=== PATIENT | female | born 1955 | race Caucasian/White ===

== ENCOUNTER 2018-02-24 10:06 | Outpatient (CLI) | payer BC ==
--- NOTE | 2018-02-24 13:03 | MRI ---
LEFT KNEE MRI WITHOUT IV CONTRAST: History: Left knee pain since July 2017. FINDINGS: Multiplanar multisequence MRI examination of the left knee was performed. There is evidence for a sub surface free edge tear with some free edge irregularity involving the posterior horn of the medial me niscus as well as a small probable flap tear at the level of the body of the medial meniscus. Small o steochondral focus, remote, involving the medial trochlear groove with some irregular cartilage thinn ing involving the inferior lateral patellar facet with associated subchondral cystic focus. There is minimal cartilage loss involving the medial compartment. The lateral meniscus appears intact. Anterio r and posterior cruciate ligaments and collateral ligament complexes and quadriceps and patellar tend ons are intact. No abnormal joint effusion. IMPRESSION: Irregular free edge tear of the posterior horn of the medial meniscus with a probable small flap tear involving the body of the medial meniscus. Some cartilage loss involving the lateral patellar facet but a small subchondral cystic focus as well as some cartilage loss involving the medial compartment. Remote small osteochondral focus involving the medial trochlear groove. No evidence for other signif icant acute internal derangement. POS: [place]
== END 2018-02-24 10:07 | disposition home or self-care (01) ==
LOC: SCSMRI 10:06
PROVIDERS: ATTEND Orthopaedic Surgery
DX: M25.562 Pain in left knee (principal); S83.242A Other tear of medial meniscus, current injury, left knee, initial encounter

== ENCOUNTER 2018-03-10 09:32 | Outpatient (CLI) | payer BC ==
[2018-03-10 10:45] LABS: #Basophils 0.1 thou/uL (0.0-0.2); #Eosinphils 0.3 thou/uL (0.0-0.7); #Lymphocytes 2.4 thou/uL (1.20-3.40); #Monocytes 0.5 thou/uL (0.11-0.59); #Neutrophils 3.3 thou/uL (1.40-6.50); %Basophils 1.4 % (0.0-1.0); %Eosinophils 4.1 % (0.0-10.0); %Lymphocytes 36.2 % (21.0-51.0); %Monocytes 8.1 % (0.0-10.0); %Neutrophils 50.2 % (42.0-75.0); Hemoglobin 13.2 g/dL (12.0-16.0); Mean Corpuscular HGB CONC 34.1 g/dL (32.0-36.0); Mean Corpuscular Hemoglobin 33.5 pg (27.0-31.0); Mean Platelet Volume 7.4 fL (7.4-10.4); Platelet Count 283 thou/uL (130-400); RBC Distribution Width 12.8 % (11.5-14.5); Red Blood Cell (RBC) Count 3.95 mill/uL (4.20-5.40); White Blood Cell (WBC) Count 6.5 thou/uL (4.8-10.8)
[2018-03-10 11:15] LABS: Anion Gap 10 mmol/L (10-20); BUN (Urea Nitrogen) 17 mg/dL (9.8-20.1); Calc. Creatinine Clearance 0 mL/min (70-130); Calcium 9.3 mg/dL (7.8-10.44); Carbon Dioxide 31 mmol/L (22-29); Chloride 103 mmol/L (98-107); Estimated GFR-MDRD 72; Glucose 82 mg/dL (70-105); Potassium 3.7 mmol/L (3.5-5.1); Sodium 140 mmol/L (136-145)
--- NOTE | 2018-03-12 20:12 | EKG ---
Test Reason : Blood Pressure : / mmHG Vent. Rate : 063 BPM Atrial Rate : 063 BPM P-R Int : 130 ms QRS Dur : 078 ms QT Int : 412 ms P-R-T Axes : 053 032 044 degrees QTc Int : 421 ms Normal sinus rhythm Normal ECG No previous ECGs available Confirmed by NORA FOUNTAIN (2) on 03/12/2018 8:12:16 PM Referred By: NOAH Confirmed By:NORA FOUNTAIN
== END 2018-03-10 09:33 | disposition home or self-care (01) ==
LOC: LABBT 09:32
PROVIDERS: ATTEND Orthopaedic Surgery
DX: Z01.818 Encounter for other preprocedural examination (principal); S83.242A Other tear of medial meniscus, current injury, left knee, initial encounter
CPT/HCPCS: 80048; 85025; 93005; 93010

== ENCOUNTER 2018-03-19 06:16 | Day surgery (SDC) | payer BC ==
[2018-03-10 09:48] VITALS: BMI 32.8
--- NOTE | 2018-03-18 08:52 | HP ---
HISTORY OF PRESENT ILLNESS: The patient is a 62-year-old female with a several year history of left knee problems without specific injury. Symptoms have become much worse over the past 4-5 months. Silverio corrales has pain with ambulation and also with stairs and also interferes with sleep. She has a sensation of instability. She has had persistent symptoms despite rest, restriction of activities, anti-inflam matory medication, and a previous cortisone injection. PAST MEDICAL HISTORY: The patient is otherwise in good health. She has history of hypertension, ref lux, thyroid replacement. CURRENT MEDICATIONS: Lipitor, levothyroxine, temazepam, Premarin, benazepril, hydrochlorothiazide, m ultivitamins and calcium. ALLERGIES: She has seasonal allergies, but no medical allergies. FAMILY HISTORY/SOCIAL HISTORY/REVIEW OF SYSTEMS: Otherwise unremarkable. PHYSICAL EXAMINATION: GENERAL: Reveals healthy female. HEENT: Unremarkable. NECK: Supple. CHEST: Clear. HEART: Regular rate and rhythm. ABDOMEN: Soft, nontender. PELVIC/RECTAL/BREAST: Exams are deferred. EXTREMITIES: Pertinent findings related to the left knee. There is no effusion. There is normal al ignment. There is tenderness over the medial joint line and lateral joint line. Range of motion is 0-135 degrees. There is slight left antalgic gait. There is no instability. Neurovascular exam is intact with palpable distal pulses. X-rays of the left knee reveal minimal degenerative changes. LABORATORY AND X-RAY FINDINGS: X-rays of the left knee reveal mild degenerative changes and a tear o f the medial meniscus. IMPRESSION: Internal derangement of left knee with medial meniscal tear, possible component of degen erative joint disease. PLAN: Arthroscopy left knee with partial medial meniscectomy and/or debridement and shaving. The na ture of the surgery, length of recovery, and potential complications such as infection, loss of motio n, incomplete relief, thromboembolic phenomenon, neurovascular injury, post-traumatic degenerative ar thritis, recurrent tear and need for additional treatment or repeat surgery have been discussed in de tail.
[2018-03-19] MEDS ORDERED: CEFAZOLIN/Water 2 GM/20 ML SYRINGE ONE (06:46)
[2018-03-19] MEDS ORDERED: Fentanyl 100 MCG/2 ML VIAL ONE (06:59)
[2018-03-19] MEDS ORDERED: Bupivacaine HCl 0.5%/Epinephrine 1:200,000/PF 30 ml Vial ONE (06:59)
[2018-03-19] MEDS ORDERED: Scopolamine 1.5 mg/72 hour Patch ONE (07:19)
[2018-03-19] MEDS ORDERED: Midazolam HCl 2 mg/2 ml Vial ONE (07:24)
--- NOTE | 2018-03-19 09:29 | OP ---
DATE OF PROCEDURE: 03/19/2018 SURGEON: Nayan Jaimes M.D. ANESTHESIA: General. PREOPERATIVE DIAGNOSIS: Medial meniscal tear, left knee. POSTOPERATIVE DIAGNOSES: Medial meniscal tear, left knee; plus early degenerative arthritis. PROCEDURE: Arthroscopy of left knee with partial medial meniscectomy. OPERATIVE FINDINGS: Examination under anesthesia revealed the knee to be stable. Arthroscopy reveal ed minimal degenerative change of the patellofemoral joint. There were grade 2 and early grade 3 michelle nges of the weightbearing surface of the medial femoral condyle and a degenerative complex tear of th e posterior horn of the medial meniscus with a large flap component. ACL was intact. Lateral menisc us and lateral compartments were normal. NARRATIVE REPORT: After satisfactory anesthesia was induced in supine position, the patient was plac ed in a leg nj and then prepped and draped in routine manner. Left leg was elevated, exsanguinat ed with an Esmarch bandage, and tourniquet inflated to 300 mmHg. Shruthi arthroscope was introduced in anterolateral portal, probe through an anteromedial portal, and inflow and outflow accomplished th rough the scope using the [employer] arthroscopy pump. Arthroscopy was carried out and the above findin gs were noted. All findings were documented with the video printed hard copies were made. The poste rior horn of the medial meniscus was debrided with use of basket forceps and motorized shaver, interm ittently interchanging the camera and instruments through the anteromedial and anterolateral portal f or best visualization. The tear was debrided and saucerized and the remaining rim probed and balance d and found to be stable. There was still an intact rim of 5-6 mm. The medial femoral condyle was d ebrided with a motorized shaver of all loose fronds of articular surface. There are no areas of expo sed bone. The knee was then copiously irrigated through the scope and all instruments were then with drawn. A 20 mL of 0.5% Marcaine with epinephrine was instilled into the knee joint and an additional 10 mL injected about the portal sites. The portal sites were closed with 3-0 nylon. A sterile bulk y compressive dressing was applied and the tourniquet deflated after 19 minutes. The foot promptly p inked up. The patient was awakened, taken to recovery room in stable condition. There were no appar ent intraoperative complications. The estimated blood loss was negligible. The patient will be discharged home in satisfactory condition. She was instructed in ice, elevation, use of crutches, and given a home exercise program by the Physical Therapy Department. She was give n written wound care instructions, a prescription for [place] 7.5 for pain, 40 tablets. She will reche ck in my office in 10-14 days or sooner if there are any problems prior to that time.
== END 2018-03-19 10:50 | disposition home or self-care (01) ==
LOC: SDC 06:16
PROVIDERS: ATTEND Orthopaedic Surgery
PROC: 0SBD4ZZ Excision of Left Knee Joint, Percutaneous Endoscopic Approach (ICD-10-PCS; principal; 2018-03-19)
DX: S83.232A Complex tear of medial meniscus, current injury, left knee, initial encounter (principal); I10 Essential (primary) hypertension; K21.9 Gastro-esophageal reflux disease without esophagitis; Z79.890 Hormone replacement therapy; Z98.890 Other specified postprocedural states
CPT/HCPCS: G8978-GP-CJ; G8979-GP-CJ; G8980-GP-CJ; J0670; J2250; J3010

== ENCOUNTER 2018-09-04 10:37 | Outpatient (CLI) | payer BC ==
--- NOTE | 2018-09-04 14:31 | MRI ---
MRI LUMBAR SPINE WITHOUT CONTRAST: Date: 09/04/18 HISTORY: M54.16, lumbar radiculopathy. COMPARISON: None. FINDINGS: The aortic contour is nonaneurysmal. No retroperitoneal adenopathy. No hydronephrosis. Left-sided par apelvic renal cysts. No marrow infiltrative process. There are Modic Type II end plate changes at L5-S1. Levels are as follows: L1-2: There is mild remodeling of the posterior end plates of L1 and L2 with remodeling of the annul us at this level without a focal disc herniation. No neural foraminal or spinal canal narrowing. L2-3: Mild posterior degenerative disc space height loss. Right subforaminal posterior disc osteophy te complex. There is moderate right-sided neural foraminal narrowing. Spinal canal is not significant ly narrowed. L3-4: Small posterior disc osteophyte complex, broad based. This extends into both subforaminal zone s and causes mild to moderate bilateral neural foraminal narrowing. The spinal canal measures approxi mately 8.0 mm. There is narrowing of the L3-4 interspinous space. L4-5: There is anterolisthesis of approximately 2.0 mm due to severe degenerative facet changes. The re is narrowing of the L4-5 interspinous space. The anterolisthesis and hypertrophic facet changes ca uses moderate bilateral neural foraminal narrowing with abutment of the exiting and traversing nerve roots. Subsequent narrowing of the spinal canal to 6.0 mm due to anterolisthesis. L5-S1: Moderate degenerative disc space height loss. Circumferential disc osteophyte complex. Hypert rophic facet changes. Moderate bilateral neural foraminal narrowing with abutment of the exiting and traversing nerve roots bilaterally. IMPRESSION: 1. Moderate spondylosis, worse at L4-5 and L5-S1. 2. Anterolisthesis, Grade I, 2-3 mm L4 over L5 due to advanced facet degenerative changes. POS: [facility]
== END 2018-09-04 10:38 | disposition home or self-care (01) ==
LOC: TBSIIMAG 10:37
PROVIDERS: ATTEND Neurological Surgery
DX: M47.26 Other spondylosis with radiculopathy, lumbar region (principal); M47.27 Other spondylosis with radiculopathy, lumbosacral region; M43.16 Spondylolisthesis, lumbar region
CPT/HCPCS: 72148

== ENCOUNTER 2018-11-10 17:39 | Emergency (ER) | payer BC ==
[2018-11-10 18:47] LABS: Bilirubin Negative (Negative); Blood, Urine Negative (Negative); Clarity Clear (Clear); Glucose, Urine (Dipstick) Negative (Negative); Leukocyte Negative (Negative); Nitrite Negative (Negative); Protein, Urine (Dipstick) Negative (Neg-Trace); Specific Gravity, Urine 1.015 (1.005-1.030); Urobilinogen 0.2 mg/dL (0.2-1.0)
[2018-11-10 18:55] LABS: Eosinophils 6 % (0-10); Hemoglobin 14.2 g/dL (12.0-16.0); Lymphocytes 25 % (21-51); MDiff Complete? YES; Mean Corpuscular HGB CONC 35.2 g/dL (32.0-36.0); Mean Corpuscular Volume 90.9 fL (78.0-98.0); Mean Platelet Volume 10.2 fL (7.4-10.4); Monocytes 4 % (0-10); Neutrophil 60 % (42-75); Platelet Count 346 thou/uL (130-400); Platelet Morphology Comment Appears Adequate; RBC Distribution Width 11.9 % (11.5-14.5); Reactive Lymphocytes 5 % (0-10); Red Blood Cell (RBC) Count 4.42 mill/uL (4.20-5.40); White Blood Cell (WBC) Count 7.6 thou/uL (4.8-10.8)
--- NOTE | 2018-11-10 19:10 | RAD ---
RADIOGRAPH CHEST 2 VIEWS: HISTORY: A 63-year-old female with chest pain. FINDINGS: There is no air space density, pulmonary edema, pleural effusion, pneumothorax, or cardiomegaly. IMPRESSION: No acute cardiopulmonary findings. jn [] POS: [facility]
[2018-11-10 19:25] LABS: ALT (SGPT) 25 U/L (8-55); AST (SGOT) 17 U/L (5-34); Albumin 4.3 g/dL (3.4-4.8); Alkaline Phosphatase 66 U/L (40-150); Anion Gap 14 mmol/L (10-20); BUN (Urea Nitrogen) 14 mg/dL (9.8-20.1); Bilirubin, Total 0.3 mg/dL (0.2-1.2); Calc. Creatinine Clearance 0 mL/min (70-130); Calcium 9.8 mg/dL (7.8-10.44); Carbon Dioxide 27 mmol/L (23-31); Chloride 105 mmol/L (98-107); Estimated GFR-MDRD 63; Globulin 2.9 g/dL (2.4-3.5); Glucose 92 mg/dL (80-115); Potassium 3.6 mmol/L (3.5-5.1); Protein, Total 7.2 g/dL (6.0-8.3); Sodium 142 mmol/L (136-145)
[2018-11-10] MEDS ORDERED: Morphine 4 MG/ML VIAL ONE (20:46)
[2018-11-10 23:04] LABS: Troponin I Less than 0.010 ng/mL (< 0.028)
--- NOTE | 2018-11-10 23:38 | CT ---
CTA THORAX WITH CONTRAST: DATE: 11/10/2018 TIME: 11:11 p.m. (Computed Tomographic Angiography, chest(noncoronary) with contrast material, and image post processi ng) (PE protocol) HISTORY: A 63-year-old female with chest pain. TECHNIQUE: IV injection of iodinated contrast. Scan acquisition timing attempted to coincide with iodinated contrast bolus reaching maximal density in pulmonary arteries. 3D MIP reconstructions. FINDINGS: There is an approximately 1 x 1.5 cm pretracheal mediastinal lymph node. No other significantly enla rged mediastinal or hilar lymph nodes. No thoracic aortic aneurysm or dissection. No pulmonary thro mboembolism. Trachea and major bronchi are patent and clear. Lungs are clear. No pleural effusion or pneumothorax. No destructive osseous lesion identified. IMPRESSION: No acute findings. guido[] POS: [place]
[2018-11-11] MEDS ORDERED: HYDROcodone/Acetaminophen 10/325 mg Tablet ONE (00:19)
== END 2018-11-11 00:29 | disposition home or self-care (01) ==
LOC: SCSER 17:39
DX: R07.89 Other chest pain (principal); G43.909 Migraine, unspecified, not intractable, without status migrainosus; J30.2 Other seasonal allergic rhinitis; E78.5 Hyperlipidemia, unspecified; F41.9 Anxiety disorder, unspecified; F32.9 Major depressive disorder, single episode, unspecified; Z79.899 Other long term (current) drug therapy
CPT/HCPCS: 36415; 71046; 71275; 80053; 81003; 84484; 85025; 85379; 93005; 96361; 96374; J2270

== ENCOUNTER 2018-11-27 15:28 | Outpatient (CLI) | payer BC ==
--- NOTE | 2018-11-27 16:20 | RAD ---
RADIOGRAPH LUMBAR SPINE 2 VIEWS: DATE: 11-27-18 HISTORY: 63-year-old female with lumbar radiculopathy. M54.16 COMPARISON: None. FINDINGS: There are five lumbar type vertebrae. There is a mild right lateral curvature. Vertebral body heights are maintained. Unilateral left pedicle screws at L4, L5, and S1 with vertical interlocking sandy. Gra de I anterolisthesis of L4 on L5. Metallic markers for interbody graft material and L4-5 and L5-S1 di sc spaces. Mild disc space narrowing at L4-5. Moderate disc space narrowing at L3-4 and L5-S1. Bony h ypertrophy along the right posterior elements at L4-5 and L5-S1 could represent onlay bone graft fusi on material and/or degenerative facet changes. IMPRESSION: 1. Status post unilateral left pedicle screw posterior interbody fusion at L4-L5-S1. 2. Mild right lateral curvature. 3. Degenerative disc changes at L3-4 and L5-S1. ROSA POS: [facility]
== END 2018-11-27 15:29 | disposition home or self-care (01) ==
LOC: TBSIIMAG 15:28
PROVIDERS: ATTEND Physician Assistant
DX: M51.16 Intervertebral disc disorders with radiculopathy, lumbar region (principal); M51.37 Other intervertebral disc degeneration, lumbosacral region; M43.8X6 Other specified deforming dorsopathies, lumbar region; Z98.1 Arthrodesis status
CPT/HCPCS: 72100

== ENCOUNTER 2019-01-22 14:31 | Outpatient (CLI) | payer BC ==
--- NOTE | 2019-01-22 14:59 | RAD ---
LUMBAR SPINE TWO VIEWS: History: Disc degenerative lumbar region. Comparison: 11-27-18 FINDINGS: AP and lateral views of the lumbar spine demonstrate left sided pedicle screw placement changes with intradiscal prosthesis at L4-5 and L5-S1 without malalignment or other acute process. IMPRESSION: Stable post-operative changes at L4-5 and L5-S1. POS: [facility]
== END 2019-01-22 14:32 | disposition home or self-care (01) ==
LOC: TBSIIMAG 14:31
PROVIDERS: ATTEND Neurological Surgery
DX: M51.36 Other intervertebral disc degeneration, lumbar region (principal); Z98.890 Other specified postprocedural states
CPT/HCPCS: 72100

== ENCOUNTER 2019-10-16 08:28 | Outpatient (CLI) | payer BC ==
--- NOTE | 2019-10-16 09:22 | MRI ---
EXAM: MRI left knee PROVIDED CLINICAL HISTORY: Pain COMPARISON: 02/24/2018 FINDINGS: The anterior cruciate ligament, posterior cruciate ligament, medial collateral ligament and lateral c ollateral ligamentous complex demonstrate an intact MR appearance, as does the extensor mechanism. There is grade 3 signal involving the body of the medial meniscus, contacting the tibial articular agudelo rface (image 15 series 6). The lateral meniscus demonstrates no evidence for tear. No focal articular cartilage defect is apparent. The amount of fluid within the knee joint appears physiologic. Regional marrow and muscular signal appear normal. IMPRESSION: Grade 3 signal involving the body of the medial meniscus as described.
== END 2019-10-16 08:29 | disposition home or self-care (01) ==
LOC: SCSMRI 08:28
PROVIDERS: ATTEND Orthopaedic Surgery
DX: M25.562 Pain in left knee (principal); Z98.890 Other specified postprocedural states

== ENCOUNTER 2019-11-24 07:29 | Day surgery (SDC) | payer BC ==
[2019-11-23 14:46] VITALS: BMI 32.4
--- NOTE | 2019-11-24 09:15 | RAD ---
LUMBAR MYELOGRAM: INDICATION: Lumbar back pain and lumbar radiculopathy TECHNIQUE: Informed consent was obtained. Preprocedure sports teacher images were performed for guidance purposes. Site overlying the left L2-3interlaminar space was marked. The site was prepped and draped in the usu al sterile fashion. Buffered 1% lidocaine was administered to the overlying subcutaneous tissues. Under fluoroscopic guidance, a 22-gauge spinal needle was guided down into the thecal sac. There was spontaneous return of normal appearing CSF fluid. Following this 12 mL of Isovue M was injected within the thecal sac. There was fluoroscopic visualiza tion of internal nerve roots confirming intrathecal location of needle placement. The inner stylette was replaced within the needle and the needle removed. Pressure was held at the bi opsy site until hemostasis was obtained. The biopsy site was then cleansed and bandage. The patient tolerated the injection without difficulty. Total fluoroscopic time was 0.4 minutes. Total exposure was 243microGy/m2. FINDINGS: There is a left L4-L5 posterior lateral interbody fusion construct. There is mild multilevel disc deg enerative and facet osteoarthritic change. IMPRESSION: Successful lumbar myelogram
--- NOTE | 2019-11-24 09:55 | CT ---
CT LUMBAR MYELOGRAM: INDICATIONS: Back pain and radiculopathy. COMPARISON: MR lumbar spine without contrast dated September 04, 2018 TECHNIQUE: Multiple CT images were obtained of the lumbar spine following the intrathecal administration of an I sovue-200 Msolution. Please see the lumbar myelogram for details concerning the injection technique. Axial, coronal, and sagittal reformatted images were constructed from the raw data. FINDINGS: Visualized retroperitoneal and paravertebral soft tissues: Within normal limits Spinal alignment: Grade 1 anterolisthesis of L4 and L5 is stable to the comparison MR of the lumbar s pine dated September 04, 2018 Spinal instrumentation or postsurgical change: There is a posterior lateral interbody fusion construc t on the left consisting of left-sided pedicular screws from L4 through S1 with interconnecting rods and intervertebral disc cages at L4-5 and L5-S1. There is no appreciable incorporation of the in terbody bone graft. There are left-sided laminotomies at L4 and L5. At L5-S1, there is a mild broad-based disc osteophyte complex without appreciable central canal narro wing. There is stable mild right neural foraminal narrowing due to the disc osteophyte complex and facet hypertrophy. At L4-5, there is a broad-based disc bulge without appreciable central canal or neural foraminal narr owing. There is improvement in the left lateral recess narrowing seen on the left at L4-5. At L3-4, there is an asymmetric to the left broad-based disc bulge inducing mild central canal narrow ing which is slightly more pronounced than on the prior exam. There is mild left neural foraminal narrowing which is stable. At L2-3, there is a broad-based disc bulge with a superimposed far lateral right disc protrusion that does contact the exited right L2 nerve on image 42 of the axial series. This appears stable to the prior exam. No left-sided neural foraminal narrowing is demonstrated. At L1-L2, there is no appreciable central canal or neuroforaminal narrowing. At T12-L1, there is no appreciable central canal or neuroforaminal narrowing. IMPRESSION: 1. Postoperative lumbar spine with mild to moderate lumbar spondylosis. 2. Improvement in the left lateral recess narrowing seen at L4-5. 3. Stable mild right neural foraminal narrowing at L5-S1. 4. Mild central canal narrowing at L3-4 slightly more pronounced than the prior exam. There is stable left mild L3-4 neural foraminal narrowing. 5. Broad-based disc bulge with a superimposed far lateral right disc protrusion is stable. There is m ild contact of the exited right L2 nerve root by the far lateral right disc protrusion.
[2019-11-24] MEDS ORDERED: Iopamidol-M 200 41% 20 ML VIAL ONE (14:31)
== END 2019-11-24 10:00 | disposition home or self-care (01) ==
LOC: RAD 07:29
PROVIDERS: ATTEND Neurological Surgery
PROC: B02B1ZZ Computerized Tomography (CT Scan) of Spinal Cord using Low Osmolar Contrast (ICD-10-PCS; principal; 2019-11-24)
DX: M47.26 Other spondylosis with radiculopathy, lumbar region (principal); M43.16 Spondylolisthesis, lumbar region; I10 Essential (primary) hypertension; E03.9 Hypothyroidism, unspecified; E78.5 Hyperlipidemia, unspecified; F41.9 Anxiety disorder, unspecified; F32.9 Major depressive disorder, single episode, unspecified
CPT/HCPCS: 62304; 72132; Q9966

== ENCOUNTER 2020-02-26 08:15 | Outpatient (CLI) | payer BC, OTHER ==
[2020-02-26 13:40] LABS: #Basophils 0.1 thou/uL (0.0-0.2); #Eosinphils 0.4 thou/uL (0.0-0.7); #Lymphocytes 2.6 thou/uL (1.20-3.40); #Monocytes 0.5 thou/uL (0.11-0.59); #Neutrophils 3.4 thou/uL (1.40-6.50); %Basophils 1.3 % (0.0-1.0); %Eosinophils 5.2 % (0.0-10.0); %Lymphocytes 37.5 % (21.0-51.0); %Monocytes 7.5 % (0.0-10.0); %Neutrophils 48.6 % (42.0-75.0); Hemoglobin 13.5 g/dL (12.0-16.0); Mean Corpuscular HGB CONC 33.9 g/dL (32.0-36.0); Mean Corpuscular Hemoglobin 32.5 pg (27.0-31.0); Mean Corpuscular Volume 95.8 fL (78.0-98.0); Mean Platelet Volume 8.1 fL (7.4-10.4); Platelet Count 305 thou/uL (130-400); RBC Distribution Width 12.1 % (11.5-14.5); Red Blood Cell (RBC) Count 4.15 mill/uL (4.20-5.40)
[2020-02-26 14:01] LABS: Anion Gap 11 mmol/L (10-20); BUN (Urea Nitrogen) 15 mg/dL (9.8-20.1); Calc. Creatinine Clearance 0 mL/min (70-130); Calcium 9.9 mg/dL (7.8-10.44); Carbon Dioxide 30 mmol/L (23-31); Chloride 102 mmol/L (98-107); Estimated GFR-MDRD 60; Glucose 85 mg/dL (80-115); Potassium 3.8 mmol/L (3.5-5.1); Sodium 139 mmol/L (136-145)
[2020-02-26 18:25] LABS: SARS-CoV-2 MS2 Positive; SARS-CoV-2 N Gene Negative; SARS-CoV-2 S Gene Negative; SARS-CoV-2 orf1ab Negative
== END 2020-02-26 08:16 | disposition home or self-care (01) ==
LOC: LABBT 08:15
PROVIDERS: ATTEND Orthopaedic Surgery
DX: Z01.812 Encounter for preprocedural laboratory examination (principal); Z11.59 Encounter for screening for other viral diseases; Z98.890 Other specified postprocedural states
CPT/HCPCS: 80048; 85025; 87635; U0002

== ENCOUNTER 2020-03-02 07:13 | Day surgery (SDC) | payer BC ==
[2020-02-26 12:33] VITALS: BMI 34.0
--- NOTE | 2020-03-01 12:38 | HP ---
HISTORY OF PRESENT ILLNESS: The patient is a 64-year-old female, who underwent left knee arthroscopy and partial medial meniscectomy approximately 2 years ago. She initially improved, but has developed recurrent pain without specific injury. She has weightbearing pain, which was worse with activities. Did not respond to anti-inflammatory medications, and previous cortisone injection. She subsequently underwent back surgery by Dr. Mendoza for back pain radiating to her left leg, which helped her back pain, but did not alleviate her knee pain. PAST HISTORY: Please see the old chart. The patient is otherwise in good health. She has a history of reflux and hypertension. CURRENT MEDICATIONS: Include: 1. Zofran. 2. Amlodipine. 3. Thyroid. 4. Meloxicam. 5. Temazepam. 6. Premarin. 7. Benazepril-hydrochlorothiazide. 8. Magnesium. 9. Calcium. 10. Rizatriptan. 11. Bupropion. 12. Flonase. ALLERGIES: SHE HAS SEASONAL ALLERGIES, BUT NO KNOWN MEDICAL ALLERGIES. FAMILY HISTORY: Otherwise unremarkable. SOCIAL HISTORY: Otherwise unremarkable. REVIEW OF SYSTEMS: Otherwise unremarkable. PHYSICAL EXAMINATION: GENERAL: Reveals a healthy female. HEENT: Unremarkable. NECK: Supple. CHEST: Clear. HEART: Regular rate and rhythm. ABDOMEN: Soft, nontender. PELVIC: Deferred. RECTAL: Deferred. BREASTS: Deferred. EXTREMITIES: Pertinent findings related to the left knee. There is no effusion or erythema. There is no swelling. There are healed arthroscopy puncture sites. There is tenderness over the medial and lateral joint lines. Range of motion is 0 to 130 degrees. There is slight left antalgic gait. NEUROVASCULAR: Intact. There is no instability. DIAGNOSTIC STUDIES: X-rays of the left knee reveal mild medial joint space narrowing. MRI scan of the left knee reveals a grade 3 signal in the medial meniscus consistent with a recurrent meniscal tear versus residual from previous surgery. IMPRESSION: Internal derangement of left knee with possible recurrent medial meniscal tear. PLAN: Arthroscopy of left knee with possible partial medial meniscectomy and/or debridement and shaving. The nature of the surgery, length of recovery, and potential complications such as infection, loss of motion, incomplete relief, thromboembolic phenomenon, neurovascular injury, posttraumatic degenerative arthritis, recurrent tear, and need for additional treatment and repeat surgery have been discussed in detail. Job ID: [id number] [facility]
[2020-03-02] MEDS ORDERED: Fentanyl 100 MCG/2 ML VIAL ONE (08:38)
[2020-03-02] MEDS ORDERED: Midazolam HCl 2 mg/2 ml Vial ONE (08:48)
[2020-03-02] MEDS ORDERED: Bupivacaine PF 0.5% 30 ML VIAL ONE (09:12)
[2020-03-02] MEDS ORDERED: Lidocaine 1% w/Epinephrine 1:100K 20 ML VIAL ONE (09:12)
[2020-03-02] MEDS ORDERED: Dexamethasone 20 MG/5 ML VIAL ONE (09:44)
[2020-03-02] MEDS ORDERED: Ondansetron PF 4 MG/2 ML Vial ONE (09:44)
[2020-03-02] MEDS ORDERED: Lidocaine 1% PF 5 ML VIAL ONE (09:44)
[2020-03-02] MEDS ORDERED: PROPOFOL 200 MG/20 ML VIAL ONE (09:44)
--- NOTE | 2020-03-02 12:31 | OP ---
DATE OF PROCEDURE: 03/02/2020 ANESTHESIA: General. PREOPERATIVE DIAGNOSIS: Recurrent medial meniscal tear, left knee. POSTOPERATIVE DIAGNOSIS: Recurrent medial meniscal tear, left knee. PROCEDURE PERFORMED: Arthroscopy of left knee with partial medial meniscectomy. OPERATIVE FINDINGS: Examination under anesthesia revealed the knee to be stable. The patellofemoral joint appeared to be normal. Examination of medial compartment revealed a previous partial meniscectomy. There was tearing of the posterior horn undersurface and the posterior horn appeared to be unstable. The anterior horn was intact. There was early grade 1 and 2 changes of the medial femoral condyle. No areas that needs shaving. ACL was intact. Lateral meniscus and lateral compartment were normal. DESCRIPTION OF PROCEDURE: After satisfactory anesthesia was induced in supine position, the patient was placed in a leg nj and then prepped and draped in routine manner. The left leg was elevated and exsanguinated with an Esmarch bandage, and the tourniquet was inflated to 300 mmHg. [place] arthroscope was introduced through anterolateral portal, probed through anteromedial portal, and inflow and outflow accomplished through the scope using a [employer] arthroscopy pump. Arthroscopy was carried out and the above findings were noted. All findings were documented with video printer and hard copies were made. Posterior horn of the medial meniscus was removed with use of basket forceps and motorized shaver. The entire remaining posterior horn was removed. The remaining anterior horn was intact and probed and stable. The scope was then introduced through anteromedial portal and all compartments were visualized and no additional pathology found. The knee was copiously irrigated through the scope and all instruments were then withdrawn. The mixture was then prepared with 30 mL of 0.5% plain Marcaine and 20 mL of 1% lidocaine with epinephrine. A 20 mL of this mixture was injected into the knee joint and additional 10 mL injected about each portal site. The portal sites were closed with 3-0 nylon and a sterile bulky compressive dressing was applied and the tourniquet deflated after 24 minutes. The foot promptly pinked up. The patient was awakened and taken to the recovery room in stable condition. The patient will be discharged home in satisfactory condition. Instructed on ice elevation, use of crutches, home exercise program by the Physical Therapy Department. She was given written wound care instructions and she has [place] 7.5 at home for pain. She will be rechecked in my office in 10 to 14 days or sooner if there are any problems prior to that time. Job ID: [id number]
== END 2020-03-02 11:52 | disposition home or self-care (01) ==
LOC: SDC 07:13
PROVIDERS: ATTEND Orthopaedic Surgery
PROC: 0SBD4ZZ Excision of Left Knee Joint, Percutaneous Endoscopic Approach (ICD-10-PCS; principal; 2020-03-02)
DX: S83.242A Other tear of medial meniscus, current injury, left knee, initial encounter (principal); I10 Essential (primary) hypertension; K21.9 Gastro-esophageal reflux disease without esophagitis; Z79.899 Other long term (current) drug therapy; Z91.040 Latex allergy status
CPT/HCPCS: J0690; J1100; J2001; J2250; J2405; J2704; J3010; S0020

== ENCOUNTER 2023-11-06 10:09 | Day surgery (SDC) | payer MEDICARE, BC ==
[2023-11-04 11:32] VITALS: BMI 34.9
[2023-11-06] MEDS ORDERED: Scopolamine 1 mg/72 hour Patch ONE (11:27)
[2023-11-06] MEDS ORDERED: Oxymetazoline HCl 0.05% (30 ML BOT) ONE ×2 (11:43→12:23)
[2023-11-06] MEDS ORDERED: Midazolam HCl 2 mg/2 ml Vial ONE (12:20)
[2023-11-06] MEDS ORDERED: Lidocaine 1% PF 5 ML VIAL ONE (12:20)
[2023-11-06] MEDS ORDERED: Dexamethasone 20 MG/5 ML VIAL ONE (12:20)
[2023-11-06] MEDS ORDERED: fentaNYL PF 100 MCG/2 ML SYRINGE ONE (12:20)
[2023-11-06] MEDS ORDERED: PROPOFOL 20 ML ONE (12:20)
[2023-11-06] MEDS ORDERED: Ondansetron PF 4 MG/2 ML Vial ONE (12:20)
[2023-11-06] MEDS ORDERED: Bacitracin Zinc Ointment 30 gm TUBE ONE (12:22)
[2023-11-06] MEDS ORDERED: EPINEPHrine 1 MG/ML VIAL ONE (12:22)
[2023-11-06] MEDS ORDERED: Lidocaine 1% (PF) 30 ML VIAL ONE (12:22)
[2023-11-06] MEDS ORDERED: SUGAMMADEX SODIUM 200 MG/2 ML VIAL ONE (13:10)
== END 2023-11-06 15:26 | disposition home or self-care (01) ==
LOC: SDC 10:09
PROVIDERS: ATTEND Otolaryngology Plastic Surgery within the Head & Neck
PROC: 09BM8ZZ Excision of Nasal Septum, Via Natural or Artificial Opening Endoscopic (ICD-10-PCS; principal; 2023-11-06)
PROC: 09TL8ZZ Resection of Nasal Turbinate, Via Natural or Artificial Opening Endoscopic (ICD-10-PCS; 2023-11-06)
DX: J34.2 Deviated nasal septum (principal); J34.3 Hypertrophy of nasal turbinates; E78.00 Pure hypercholesterolemia, unspecified; I10 Essential (primary) hypertension; M06.9 Rheumatoid arthritis, unspecified; F41.9 Anxiety disorder, unspecified; F32.A Depression, unspecified; E03.9 Hypothyroidism, unspecified; J30.1 Allergic rhinitis due to pollen; J30.81 Allergic rhinitis due to animal (cat) (dog) hair and dander; J30.89 Other allergic rhinitis; Z87.59 Personal history of other complications of pregnancy, childbirth and the puerperium; Z90.710 Acquired absence of both cervix and uterus; Z98.890 Other specified postprocedural states; Z79.899 Other long term (current) drug therapy
CPT/HCPCS: 30140; 30520; J0171; J1100; J2001; J2250; J2405; J2704